=== PATIENT | male | born 1950 | race Caucasian/White ===

== ENCOUNTER → 2019-10-13 | Outpatient (CLI) | payer MEDICARE, OTHER ==
[2019-10-13 12:48] LABS: BUN/CREATININE RATIO 15; CREATININE SERUM 1.18 MG/DL (0.60-1.30); GFR ESTIMATED > 60
--- NOTE | 2019-10-13 13:55 | Diagnostic Imaging Report ---
PROCEDURE: CT abdomen and pelvis with contrast. TECHNIQUE: Multiple contiguous axial images were obtained through the abdomen and pelvis after administration of intravenous contrast. Auto Exposure Controls were utilized during the CT exam to meet ALARA standards for radiation dose reduction. INDICATION: Right-sided foot drop. COMPARISON: No prior studies are available for comparison. FINDINGS: The lung bases are clear. No discrete liver mass is identified. The gallbladder is unremarkable. No biliary ductal dilatation is detected. The pancreas and spleen are unremarkable. No adrenal mass is detected. Kidneys contain tiny cortical low densities, too small to characterize but most likely small cysts. The aorta is non-aneurysmal. No central, retroperitoneal, or mesenteric lymphadenopathy is detected. The small and large bowel loops are normal caliber. Appendix is unremarkable. There is diverticulosis of the descending and sigmoid colon but no evidence of acute diverticulitis. No free fluid or fluid collection is identified. No iliac or inguinal lymphadenopathy is detected. The bladder and prostate are unremarkable. The bony structures are nonacute. IMPRESSION: 1. Uncomplicated diverticulosis. 2. No acute feature in the abdomen or pelvis is identified. Dictated by: Dictated on workstation # [id number]
--- NOTE | 2019-10-13 14:10 | Diagnostic Imaging Report ---
INDICATION: Right-sided hip pain for one month. TIME OF EXAM: 12:40 p.m. FINDINGS: Curvature and alignment of the lumbar spine are normal. Vertebral body heights are maintained. No acute compression fracture is identified. There is generalized degenerative disc and facet disease with variable disc space narrowing and marginal spurring. There are some atherosclerotic calcifications within the abdominal aorta. No spondylolysis or spondylolisthesis is seen. IMPRESSION: Lumbar spondylosis. No acute bony abnormality is detected. Dictated by: Dictated on workstation # [id number]
== END ==
LOC: RAD 12:17
DX: M48.10 Ankylosing hyperostosis [Forestier], site unspecified (principal); M21.371 Foot drop, right foot; K57.30 Diverticulosis of large intestine without perforation or abscess without bleeding; M47.816 Spondylosis without myelopathy or radiculopathy, lumbar region
CPT/HCPCS: 36415; 72110; 74177; 82565; 84520

== ENCOUNTER → 2019-11-04 | Outpatient (CLI) | payer MEDICARE, OTHER ==
--- NOTE | 2019-11-04 14:10 | Diagnostic Imaging Report ---
PROCEDURE: MRI lumbar spine. TECHNIQUE: Multiplanar, multisequence MRI of the lumbar spine was performed without contrast. INDICATION: Back pain. Hip pain. Right foot drop. Radiculopathy. COMPARISON: Lumbar spine radiographs 10/13/2019. FINDINGS: There are five lumbar-type vertebral bodies for the purposes of this report. Normal alignment. Chronic superior endplate height loss of L4 is degenerative including a Schmorl's node. Mild degenerative endplate changes. No abnormal signal in the conus which terminates at L1. Normal morphology of the cauda equina. Visualized paravertebral soft tissues are unremarkable. L1-L2: No spinal canal or lateral recess narrowing. Mild bilateral neural foraminal narrowing. L2-L3: Annular disc bulge results in mild bilateral lateral recess narrowing. No spinal canal narrowing. Disc space height loss contributes to mild bilateral neural foraminal narrowing. L3-L4: Annular disc bulge combines with ligamentous hypertrophy to result in moderate right and severe left lateral recess narrowing. There is also mxti-cu-gdwzcjie spinal canal narrowing. Moderate right and severe left neural foraminal narrowing. L4-L5: Annular disc bulge, ligamentous hypertrophy, and facet arthropathy result in moderate bilateral lateral recess and mild spinal canal narrowing. Gmowrdhz-pb-gfgugu bilateral neural foraminal narrowing. L5-S1: No spinal canal narrowing. There is mild bilateral lateral recess and neural foraminal narrowing. IMPRESSION: 1. Spondylotic changes result in no high-grade spinal canal narrowing. Multilevel high-grade lateral recess and neural foraminal narrowing detailed above. 2. No acute osseous findings. Dictated by: Dictated on workstation # [id number]
== END ==
LOC: RAD 13:04
PROVIDERS: ATTEND Physical Medicine & Rehabilitation
DX: M47.26 Other spondylosis with radiculopathy, lumbar region (principal); M21.371 Foot drop, right foot
CPT/HCPCS: 72148

== ENCOUNTER 2020-10-11 05:32 | Outpatient (RCR) | payer MEDICARE, OTHER ==
[~2020-10-11] VITALS: Ht 177 cm; Wt 84.0 kg
[~2020-10-11 05:32] MED LIST: ACHD5005 PO; AMPH30TA2 PO; LOSA100T57 PO
== END 2020-10-11 10:54 | disposition home or self-care (01) ==
LOC: PREOP 05:32
PROVIDERS: ATTEND Surgery
DX: Z01.818 Encounter for other preprocedural examination (principal); K40.90 Unilateral inguinal hernia, without obstruction or gangrene, not specified as recurrent; Z20.828 Contact with and (suspected) exposure to other viral communicable diseases
CPT/HCPCS: 87635

== ENCOUNTER 2020-10-13 11:05 | Day surgery (SDC) | payer MEDICARE, OTHER ==
[2020-10-13] VITALS (12 sets, daily range): BP systolic 85–151; BP diastolic 55–95
[~2020-10-13] VITALS: Ht 177 cm; Wt 84.0 kg
[2020-10-13] MEDS ORDERED: LIDOCAINE/EPI 1%-1:200,000 (XYLOCAINE) 30 ML VIAL ONE (11:35)
--- NOTE | 2020-10-13 12:06 | Progress Note-Pre Operative ---
Pre-Operative Progress Note H&P Reviewed The H&P was reviewed, patient examined and no changes noted. Date Seen by Provider: Oct 13, 2020 Time Seen by Provider: 12:05 Date H&P Reviewed: Oct 13, 2020 Time H&P Reviewed: 12:00 Pre-Operative Diagnosis: Left inguinal hernia BERTHA WALTER APRN Oct 13, 2020 12:06
[2020-10-13] MEDS ORDERED: HYDR-4227 PO (12:07)
--- NOTE | 2020-10-13 12:08 | Discharge Inst-Surgical ---
D/C Lap Instructions-KIDO Reconcile Patient Problems Problems Reviewed?: Yes New, Converted, or Re-Newed RX: RX on Chart Follow Up Appt in 2 weeks Activity as tolerated No driving for 24 hours No driving while on pain medications Incentive Spirometry use every 2 hours while awake Regular Diet Symptoms to Report: Fever over 101 degree F, Nausea/Vomiting Infection Signs and Symptoms to report: Increased redness, Foul odor of wound, Increased drainage Bathing instructions: May shower Operative Area Clean/Dry; Keep incision clean/dry If any problems/questions: Contact your physician or go to Emergency Room BERTHA WALTER APRN Oct 13, 2020 12:07
[2020-10-13 12:13] LABS: BASOPHILS # (AUTO) 0.1 10^3/uL (0.0-0.1); BASOPHILS % (AUTO) 1 % (0-10); EOSINOPHILS # (AUTO) 0.3 10^3/uL (0.0-0.3); EOSINOPHILS % (AUTO) 5 % (0-10); HEMATOCRIT 44 % (40-54); HEMOGLOBIN 15.2 g/dL (13.3-17.7); LYMPHOCYTES # (AUTO) 1.4 10^3/uL (1.0-4.0); LYMPHOCYTES % (AUTO) 22 % (12-44); MEAN CORPUSCULAR HEMOGLOBIN 30 pg (25-34); MEAN CORPUSCULAR HGB CONC 35 g/dL (32-36); MEAN CORPUSCULAR VOLUME 87 fL (80-99); MEAN PLATELET VOLUME 8.8 fL (9.0-12.2); MONOCYTES # (AUTO) 0.5 10^3/uL (0.0-1.0); MONOCYTES % (AUTO) 8 % (0-12); NEUTROPHILS # (AUTO) 4.3 10^3/uL (1.8-7.8); NEUTROPHILS % (AUTO) 65 % (42-75); PLATELET COUNT 202 10^3/uL (130-400); WHITE BLOOD COUNT 6.7 10^3/uL (4.3-11.0)
[2020-10-13] MEDS ORDERED: ACETAMINOPHEN 325 MG TABLET PO PRN (12:15)
[2020-10-13] MEDS ORDERED: morphine INJ 10 MG/ML 1ML (SYR OR VIAL) IVP PRN (12:15)
[2020-10-13] MEDS ORDERED: ONDANSETRON 4 MG/2 ML (SDV) Z0FRAN IVP PRN ×2 (12:15→15:00)
[2020-10-13] MEDS ORDERED: HYDROcodone/APAP 5 MG/325 MG (LORTAB) TAB PO ONE (12:15)
[2020-10-13] MEDS ORDERED: ceFAZolin 2 GM IV Premixed 50 ML ONE (12:43)
[2020-10-13] MEDS ORDERED: ceFAZolin 2 GM IV Premixed 50 ML IV ONE (13:00)
[2020-10-13] MEDS ORDERED: LACTATED RINGERS 1,000 ML IV PRN ×2 (13:00)
[2020-10-13] MEDS ORDERED: fentaNYL INJECTION 100 MCG/2 ML AMP ONE (13:13)
[2020-10-13] MEDS ORDERED: MIDAZOLAM 2 MG/2 ML (VERSED) VIAL ONE (13:14)
[2020-10-13] MEDS ORDERED: ONDANSETRON 4 MG/2 ML (SDV) Z0FRAN ONE (13:22)
[2020-10-13] MEDS ORDERED: proPOfol 200 MG/20 ML (DIPRIVAN) VIAL IV ONE (13:22)
[2020-10-13] MEDS ORDERED: LIDOCAINE PF 2% 5 ML (XYLOCAINE) VIAL ONE (13:22)
[2020-10-13] MEDS ORDERED: SEVOFLURANE (ULTANE) 15 ML INHAL SOLN ONE ×2 (13:22→14:29)
[2020-10-13] MEDS ORDERED: morphine INJ 4 MG/ML 1 ML (VIAL/SYRINGE) IV PRN (14:00)
[2020-10-13] MEDS ORDERED: NS (IVPB) 0 ML ONE (14:24)
[2020-10-13] MEDS ORDERED: NEOSTIGMINE 3 MG/3 ML VIAL ONE (14:30)
[2020-10-13] MEDS ORDERED: ATROPINE INJ 0.4 MG/ML SDV ONE (14:30)
[2020-10-13] MEDS ORDERED: GLYCOPYRROLATE 0.2 MG/ML (ROBINUL) 2 ML VIAL ONE (14:30)
[2020-10-13] MEDS ORDERED: PHENYLEPHRINE 100 MCG/ML 10 ML (ANESTHESIA) SYR ONE (14:30)
[2020-10-13] MEDS ORDERED: ROCURONIUM 10 MG/ML 5 ML SYRINGE IV ONE (14:31)
[2020-10-13] MEDS ORDERED: ISOFLURANE (FORANE) 15 ML/15 MIN INHALATION ONE (14:34)
--- NOTE | 2020-10-13 14:42 | Progress Note-Post Operative ---
Post-Operative Progess Note Surgeon (s)/Lab Clerk (s) Surgeon JEWELL VERONICA MD Lab Clerk: yajaira calvo LOAN SERVICING OFFICER Pre-Operative Diagnosis Left inguinal hernia Post-Operative Diagnosis incarcerated sliding left indirect inguinal hernia Procedure & Operative Findings Date of Procedure 10/13/20 Procedure Performed/Findings laparoscopic incarcerated left inguinal hernia repair with mesh. Anesthesia Type get Estimated Blood Loss Estimated blood loss (mL): minimsl Specimens/Packing Specimens Removed none JEWELL VERONICA MD Oct 13, 2020 14:42
[2020-10-13] MEDS ORDERED: MEPERIDINE (DEMEROL) INJ 50 MG/ML IVP ONE (15:00)
[2020-10-13] MEDS ORDERED: morphine INJ 10 MG/ML 1ML (SYR OR VIAL) IVP ONE (15:00)
[2020-10-13] MEDS ORDERED: fentaNYL INJECTION 100 MCG/2 ML AMP IVP ONE (15:00)
--- NOTE | 2020-10-13 20:52 | OPERATIVE REPORT ---
DATE OF SERVICE: 10/13/2020 PREOPERATIVE DIAGNOSIS: Symptomatic left inguinal hernia. POSTOPERATIVE DIAGNOSIS: Left incarcerated sliding indirect inguinal hernia with small bowel in the hernia sac. Symptomatic left groin skin lesion, 1 cm in size. PROCEDURE: 1. Left incarcerated inguinal hernia repair with mesh. 2. Excision left groin skin lesion, 1 cm in size. SURGEON: Jewell Veronica MD. INSPECTOR DIALS: Andrae Chapman APRN ESTIMATED BLOOD LOSS: Minimal. FINDINGS: Left incarcerated sliding indirect inguinal hernia with small bowel in the hernia sac. Symptomatic left groin skin lesion, 1 cm in size. DISPOSITION: The patient tolerated the procedure well. The patient is a 70-year-old male referred over to us for a symptomatic painful bulge in the left inguinal region. He reports that this has been around for several years and has grown larger in size and become more painful. Upon examination, he was found to have a left inguinal hernia, which was tender to palpation and at that time was reducible. He is otherwise eating well and having normal bowel movements. He also does have a symptomatic skin lesion on the left inguinal region, which is consistent with a benign skin tag; however, this was larger, approximately 1 cm in size. DESCRIPTION OF PROCEDURE: The patient was brought to the operating room, laid supine on the table. After adequate IV pain and sedative medications and general endotracheal intubation, the abdomen was prepped and draped in standard surgical fashion. A 0.5% Marcaine with epinephrine was used to anesthetize overlying skin in the infraumbilical rim and a transverse skin incision made using a 15 blade. A sharp towel clamp was used to retract the abdominal wall anteriorly and a Veress needle inserted with low opening pressure of 0 mmHg and the abdomen was then insufflated to 15 mmHg pressure. The Veress needle removed and a 10 mm XL trocar placed followed by a 10 mm 45-degree angle laparoscope visualizing the peritoneal cavity. A 4-quadrant abdominal exploration was performed. There was a left indirect incarcerated sliding inguinal hernia identified with small bowel creating one wall of the hernia sac. There was no left inguinal hernia component. The remainder of the small bowel, omentum and colon appeared normal. Under direct visualization, we then proceeded to place bilateral 5 mm ports after the skin and peritoneal lining were anesthetized using 0.5% Marcaine with epinephrine and transverse skin incision was made using a 15 blade. The patient was then placed in reverse Trendelenburg position. A window was then created along the peritoneal lining starting laterally towards the conjoined tendon and inguinal ligament with the Sonicision. We then proceeded medially until Steven's ligament identified. We then proceeded with our inferior dissection encompassing the hernia sac. The cord and its surrounding contents identified and spared throughout the process. Good hemostasis was observed. A 3DMax polypropylene mesh was then placed into the peritoneal cavity and tacked to Steven's ligament medially and inguinal ligament laterally using absorbable tacks. The peritoneal lining was then placed over the mesh and a few absorbable tacks placed to hold this in place with visualization of good hemostasis. The 10 mm port site fascia and peritoneum were then closed under direct visualization using a Billy-Diane device and 0 Vicryl suture. The abdomen was desufflated and remaining ports removed. All skin incisions were closed using 4-0 Monocryl running subcuticular sutures. Wounds were then cleaned and covered with Dermabond. We then proceeded with excision of the symptomatic right groin skin lesion. The lesion was fully excised, encompassing normal skin using a 15 blade, an elliptical shape. Good hemostasis was observed and the skin edges were approximated using 4-0 Monocryl running subcuticular suture. The patient tolerated the procedure well. We will start IV normal pain medication as well as a clear liquid diet. Once he is tolerating clears, has good pain control with oral pain medications, ambulating well, we will discharge him home and he will be instructed to do no heavy lifting or exertion for the next two weeks. Job ID: [id number] DocumentID: [id number] Dictated Date: 10/13/2020 14:50:03 Employee Benefits Director Date: 10/13/2020 20:52:07 Dictated By: JEWELL VERONICA MD
== END 2020-10-13 16:45 ==
LOC: SDC 11:05
PROVIDERS: ATTEND Surgery
DX: K40.30 Unilateral inguinal hernia, with obstruction, without gangrene, not specified as recurrent (principal); K40.90 Unilateral inguinal hernia, without obstruction or gangrene, not specified as recurrent; C44.519 Basal cell carcinoma of skin of other part of trunk; I10 Essential (primary) hypertension; G25.81 Restless legs syndrome; Z79.899 Other long term (current) drug therapy; Z80.6 Family history of leukemia
CPT/HCPCS: 11601; 49507; 85025; 87081; 88305; C1781; 36415

== ENCOUNTER → 2021-06-21 | Outpatient (CLI) | payer MEDICARE, OTHER ==
[~2021-06-21] MED LIST changes: +HYDR-4227 PO
== END ==
LOC: CARD 08:30
PROVIDERS: ATTEND Internal Medicine Cardiovascular Disease
DX: G45.9 Transient cerebral ischemic attack, unspecified (principal)
CPT/HCPCS: 93225; 93226

== ENCOUNTER → 2021-06-22 | Outpatient (CLI) | payer MEDICARE, OTHER ==
--- NOTE | 2021-06-22 11:45 | Diagnostic Imaging Report ---
PROCEDURE: MR imaging of the brain without contrast. TECHNIQUE: Multiplanar, multisequence MR imaging of the brain was performed without contrast. INDICATION: Strokelike symptoms with right-sided weakness. No prior studies are available for comparison. The ventricles and sulci are prominent consistent with cerebral atrophy. There is extensive periventricular and subcortical white matter changes noted consistent with chronic micro-vascular ischemia. No diffusion restriction is identified. The normal expected flow-voids within the carotid siphons are seen. No acute intra-axial or extra-axial hemorrhage is detected. Corpus callosum is unremarkable. Sella and parasellar structures are unremarkable. IMPRESSION: Extensive changes of chronic microvascular ischemia. No acute intracranial process is detected. Dictated by: Dictated on workstation # [id number]
== END ==
LOC: CARD 09:00
PROVIDERS: ATTEND Internal Medicine Cardiovascular Disease
DX: G45.9 Transient cerebral ischemic attack, unspecified (principal)
CPT/HCPCS: 70551; 93306

== ENCOUNTER → 2021-11-21 | Outpatient (CLI) | payer MEDICARE, OTHER ==
[~2021-11-21] MED LIST changes: +CATHETER FLUSH 10 ML SYR IV PRN
[2021-11-21 13:29] VITALS: BP 142/93
[2021-11-21 13:43] VITALS: BP 187/88
--- NOTE | 2021-11-21 18:27 | STRESS TEST ---
DATE OF SERVICE: 11/21/2021 RESTING AND POST EXERCISE TECHNETIUM-99M TETROFOSMIN SPECT CT IMAGING ORDERING PHYSICIAN: Dr. Vega. CLINICAL DIAGNOSIS: Premature ventricular contractions. Baseline images were carried out after injection of 9.97 mCi of technetium-99m Tetrofosmin. This was followed by exercise on a treadmill. Mannie protocol was employed. Heart rate response to exercise was normal. Blood pressure response to exercise was hypertensive. Test was stopped on account of fatigue. At peak exercise and in the immediate recovery phase, there appears to be approximately [address] segment depression. He did not report chest discomfort. He exercised for a total of 8 minutes and 55 seconds and attained 10.3 METS of workload and 93% of maximum predicted heart rate. After he had attained more than 85% of maximum predicted heart rate, 28.1 mCi of technetium-99m Tetrofosmin were injected and the exercise was continued for approximately another minute. Review of images at rest and following stress indicates a transient lateral wall perfusion defect, which appears moderate in intensity. Gated images show normal global left ventricular systolic function with normal regional wall motion. Left ventricular ejection fraction is calculated to be 76%. Left ventricular end-diastolic volume is 49 mL. TID is absent (0.76). CONCLUSIONS: 1. This study is suggestive of a moderate amount of lateral wall ischemia. 2. Normal global left ventricular systolic function with a calculated ejection fraction of 76%. 3. No significant regional wall motion abnormality identified on this study. Job ID: [id number] DocumentID: [id number] Dictated Date: 11/21/2021 15:57:07 Suspender Maker Date: 11/21/2021 18:26:33 Dictated By: JUAN VEGA MD, MA, FACP, FACC,
== END ==
LOC: CARD 12:00
PROVIDERS: ATTEND Internal Medicine Cardiovascular Disease
DX: I49.3 Ventricular premature depolarization (principal)
CPT/HCPCS: 78452; 93017; A9502

== ENCOUNTER 2022-05-23 07:05 | Outpatient (CLI) | payer MEDICARE ==
[~2022-05-23] VITALS: Ht 177.8 cm; Wt 83.5 kg
[~2022-05-23 07:05] MED LIST changes: -CATHETER FLUSH 10 ML SYR IV PRN
== END 2022-05-25 09:28 ==
LOC: PREOP 07:05
PROVIDERS: ATTEND Internal Medicine
DX: Z01.818 Encounter for other preprocedural examination (principal)

== ENCOUNTER 2022-06-01 08:53 | Day surgery (SDC) | payer MEDICARE ==
--- NOTE | 2022-05-23 08:41 | HISTORY AND PHYSICAL ---
DATE OF SERVICE: COLONOSCOPY HISTORY AND PHYSICAL DATE OF ADMISSION: . HISTORY OF PRESENT ILLNESS: The patient is a 71-year-old white male, who reports about a 6-week history of intermittent bright red blood per rectum. He had some abdominal distention without any significant abdominal pain. He thought that it may be salmonella related as he had eaten a fair amount of peanut butter, but a lot number appeared to be recalled; however, the patient never had any significant diarrhea. He has no history of hemorrhoids. Denies any pain with defecation. He is not aware of any weight loss and reports no previous history of colonoscopy. He is not aware of any family history for colon cancer. PAST MEDICAL HISTORY: Significant for type 2 diabetes, hyperlipidemia, and hypertension with no known history of cardiovascular disease. PHYSICAL EXAMINATION: GENERAL: Reveals a white male, appeared to be in no acute distress. HEENT: Unremarkable. Sclerae nonicteric. No evidence for pallor. VITAL SIGNS: Blood pressure 130/72. CHEST: Clear. CARDIOVASCULAR: Reveals a regular rate and rhythm without murmur, S3 or S4. ABDOMEN: Soft, supple without mass, organomegaly or tenderness. There is a little bit of fullness in the left lower quadrant, but nontender. No discrete mass type feel on evaluation. EXTREMITIES: Reveal no cyanosis, clubbing or edema. ASSESSMENT AND PLAN: The patient is being set up for his first screening colonoscopy. We will perform a digital rectal evaluation at the time of the test. Electronic medical record was reviewed. The patient was advised to abstain from aspirin. Prep instructions were given and questions were answered. Job ID: [id number] DocumentID: [id number] Dictated Date: 05/16/2022 17:19:37 Automotive Metalsmith Date: 05/16/2022 17:32:21 Dictated By: DEONDRE STAFFORD MD
[2022-06-01] VITALS (8 sets, daily range): BP systolic 111–163; BP diastolic 59–89
[~2022-06-01] VITALS: Ht 177.8 cm; Wt 83.5 kg
[2022-06-01] MEDS ORDERED: LACTATED RINGERS 1,000 ML IV STA (08:55)
[2022-06-01] MEDS ORDERED: LACTATED RINGERS 1,000 ML IV ONE (08:59)
--- NOTE | 2022-06-01 09:01 | Pre-Op Note & Conscious Sedat ---
Pre-Operative Progress Note Date H&P Reviewed: Jun 01, 2022 Time H&P Reviewed: 09:00 History & Physical: H&P Reviewed, Patient Examed, No changes noted Pre-Op Diagnosis: Screening Colon Conscious Sedation Pre-Proced ASA Score 2 For ASA 3 and 4: Consider anesthesia and medical clearance. Also, for patients with a history of failed moderate sedation consider anesthesia. Airway Lungs Heart ASA score ASA 1: a normal healthy patient ASA 2: a patient with a mild systemic disease (mid diabetes, controlled hypertension, obesity ASA 3: a patient with a severe systemic disease that limits activity (angina, COPD, prior Myocardial infarction) ASA 4: a patient with an incapacitating disease that is a constant threat to life (CHF, renal failure) ASA 5: a moribund patient not expected to survive 24 hrs. (ruptured aneurysm) ASA 6: a declared brain- patient whose organs are being harvested. For emergent operations, add the letter E after the classification Mallampati Classification Grade 2 Sedation Plan Analgesia, Amnesia, Plan communicated to team members, Discussed options with patient/fam, Discussed risks with patient/fam The patient is an appropriate candidate to undergo the planned procedure, sedation, and anesthesia. The patient immediately re-assessed prior to indication. DEONDRE STAFFORD MD Jun 01, 2022 09:01
[2022-06-01] MEDS ORDERED: PROPOFOL INJECTION 50 ML IV ONE ×2 (09:11→09:30)
[2022-06-01] MEDS ORDERED: MIDAZOLAM 2 MG/2 ML (VERSED) VIAL ONE (09:11)
[2022-06-01] MEDS ORDERED: ASPI-999 PO (09:14)
[2022-06-01] MEDS ORDERED: METO50TA7 PO (09:14)
[2022-06-01] MEDS ORDERED: METF-397 PO (09:14)
[2022-06-01] MEDS ORDERED: ATOR80TA76 PO (09:14)
[2022-06-01] MEDS ORDERED: HYDR-3820 PO (09:14)
[2022-06-01] MEDS ORDERED: CYAN100T37 PO (09:14)
--- NOTE | 2022-06-01 11:49 | Anesthesia-General Post-Op ---
MAC Patient Condition Mental Status/LOC: Same as Preop Cardiovascular: Satisfactory Nausea/Vomiting: Absent Respiratory: Satisfactory Pain: Controlled Complications: Absent Post Op Complications Complications None Follow Up Care/Instructions Patient Instructions None needed. Anesthesiology Discharge Order Discharge Order Patient is doing well, no complaints, stable vital signs, no apparent adverse anesthesia problems. No complications reported per nursing. CARLA LIGHT CRNA Jun 01, 2022 11:49
--- NOTE | 2022-06-01 15:08 | OPERATIVE REPORT ---
DATE OF SERVICE: COLONOSCOPY SUMMARY INDICATION FOR THE PROCEDURE: The patient is a 71-year-old white male undergoing his first screening colonoscopy. DESCRIPTION OF PROCEDURE: The patient was placed in the left lateral decubitus position. Prior to undergoing colonoscopy, digital rectal evaluation was performed. Anal sphincter tone was normal and the perianal reflexes intact. Prostate is mildly enlarged and anodular on digital inspection. No other abnormalities were noted on digital inspection of anal canal or distal rectal vault. The colonoscope was then inserted into the rectum and under direct visualization advanced to the cecum. The cecum was identified by identification of the ileocecal valve and cecal strap. Photographic documentation was obtained. Careful inspection was made as colonoscope withdrawn. Quality of prep was good. FINDINGS: The patient did have significant telangiectasia in the anal canal with one grade I internal hemorrhoid complex. The rectum was unremarkable. Moderate diverticular disease confined to the sigmoid colon was present without evidence for diverticulitis. The descending colon was unremarkable. A 4 mm sessile adenomatous appearing polyp was noted in the splenic flexure. Hot forceps was used to biopsy and cauterize the polyp with no subsequent blood loss. The transverse colon was unremarkable. A sessile 5 to 6 mm polyp was noted at the hepatic flexure. It was photographed and biopsied and ablated with hot forceps as well with no subsequent blood loss. The ascending colon and cecum were unremarkable. ASSESSMENT: Two adenomatous appearing polyps were removed, one from the splenic flexure, the other one from the hepatic flexure via hot forceps as long as there are no surprises on histopathology report, we will likely advocate consideration for repeat colonoscopy in 5 years. Moderate diverticular disease confined to the sigmoid colon was present without evidence for diverticulitis. The patient also had significant telangiectasia in the anal canal, likely source of the small volume bright red blood per rectum with one grade I internal hemorrhoid complex. Job ID: [id number] DocumentID: [id number] Dictated Date: 06/01/2022 09:49:56 Hot Baller Date: 06/01/2022 15:07:10 Dictated By: DEONDRE STAFFORD MD
== END 2022-06-01 11:10 | disposition home or self-care (01) ==
LOC: ENDO 08:53
PROVIDERS: ATTEND Internal Medicine
DX: Z12.11 Encounter for screening for malignant neoplasm of colon (principal); D12.3 Benign neoplasm of transverse colon
CPT/HCPCS: 88305

== ENCOUNTER → 2023-09-11 | Outpatient (CLI) | payer MEDICARE ==
[~2023-09-11] MED LIST changes: +ASPI-999 PO; +ATOR80TA76 PO; +CYAN100T37 PO; +HYDR-3820 PO; -LOSA100T57 PO; +LOSA100T58 PO; +METF-397 PO; +METO50TA7 PO
[2023-09-11 15:37] LABS: BASOPHILS # (AUTO) 0.1 10^3/uL (0.0-0.1); BASOPHILS % (AUTO) 1 % (0-10); EOSINOPHILS # (AUTO) 0.1 10^3/uL (0.0-0.3); EOSINOPHILS % (AUTO) 1 % (0-10); HEMATOCRIT 36 % (40-54); HEMOGLOBIN 11.7 g/dL (13.3-17.7); LYMPHOCYTES # (AUTO) 1.1 10^3/uL (1.0-4.0); LYMPHOCYTES % (AUTO) 15 % (12-44); MEAN CORPUSCULAR HEMOGLOBIN 28 pg (25-34); MEAN CORPUSCULAR HGB CONC 33 g/dL (32-36); MEAN CORPUSCULAR VOLUME 86 fL (80-99); MEAN PLATELET VOLUME 8.4 fL (9.0-12.2); MONOCYTES # (AUTO) 0.6 10^3/uL (0.0-1.0); MONOCYTES % (AUTO) 9 % (0-12); NEUTROPHILS # (AUTO) 5.5 10^3/uL (1.8-7.8); NEUTROPHILS % (AUTO) 74 % (42-75); PLATELET COUNT 423 10^3/uL (130-400); WHITE BLOOD COUNT 7.4 10^3/uL (4.3-11.0)
[2023-09-11 15:45] LABS: ALBUMIN 3.4 GM/DL (3.2-4.5); POTASSIUM 3.7 MMOL/L (3.6-5.0)
[2023-09-11 15:46] LABS: CALCIUM 9.4 MG/DL (8.5-10.1)
[2023-09-11 15:49] LABS: BILIRUBIN,TOTAL 0.3 MG/DL (0.1-1.0)
[2023-09-11 15:51] LABS: CREATININE SERUM 0.88 MG/DL (0.60-1.30)
[2023-09-11 16:07] LABS: ERYTHROCYTE SEDIMENTATION RATE 113 MM/HR (0-30)
== END ==
LOC: WOUNDCARE 13:52
PROVIDERS: ATTEND Family Medicine
DX: T81.31XA Disruption of external operation (surgical) wound, not elsewhere classified, initial encounter (principal); I96 Gangrene, not elsewhere classified; S97.02XA Crushing injury of left ankle, initial encounter; I70.243 Atherosclerosis of native arteries of left leg with ulceration of ankle; L92.8 Other granulomatous disorders of the skin and subcutaneous tissue; R60.0 Localized edema; V28.49XA Other motorcycle driver injured in noncollision transport accident in traffic accident, initial encounter
CPT/HCPCS: 11042; 80053; 83036; 85025; 85652; 86141; 87070; 87077; 87186; 87205; A6260; G0463; 36415

== ENCOUNTER → 2023-09-17 | Outpatient (CLI) | payer MEDICARE | LOC: WOUNDCARE 14:05 | PROVIDERS: ATTEND Family Medicine | DX: T81.31XA Disruption of external operation (surgical) wound, not elsewhere classified, initial encounter (principal); S97.02XA Crushing injury of left ankle, initial encounter; L92.8 Other granulomatous disorders of the skin and subcutaneous tissue; I70.243 Atherosclerosis of native arteries of left leg with ulceration of ankle; R60.0 Localized edema; V28.49XA Other motorcycle driver injured in noncollision transport accident in traffic accident, initial encounter; A49.02 Methicillin resistant Staphylococcus aureus infection, unspecified site; I96 Gangrene, not elsewhere classified | CPT/HCPCS: 99212 ==

== ENCOUNTER → 2023-09-17 | Outpatient (CLI) | payer MEDICARE ==
[~2023-09-17] MED LIST changes: +GADOTERATE 0.5 MMOL/ML (CLARISCAN) 15 ML VIAL IV ONE
--- NOTE | 2023-09-17 16:25 | Diagnostic Imaging Report ---
EXAMINATION: Magnetic resonance imaging of the left ankle without and with intravenous contrast. DATE: September 17, 2023. COMPARISON: None. HISTORY: 73-year-old male, left ankle pain. History of injury and surgery in June 2023. Nonhealing wound. TECHNIQUE: Magnetic Resonance Imaging sequences were performed of the ankle without and with intravenous contrast. FINDINGS: There is focal fluid signal superficial to the posterior flexor tendons near the level of the calcaneus in the medial subcutaneous tissues measuring 4.6 x 1.2 cm in axial extent and 5.0 cm in craniocaudal extent. There is peripheral enhancement. There is also adjacent subcutaneous edema. There is no additional identified focal fluid collection. There is intramuscular edema involving the entire imaged musculature. There is no particularly prominent fatty muscle atrophy. The Achilles tendon is intact. The posterior flexor tendons are intact. The anterior extensor tendons are intact. The peroneus brevis and peroneus longus tendons are intact. There is no evidence of tenosynovitis. At least portions of the deep deltoid ligament are intact on coronal STIR sequence image 19. There is nondiagnostic assessment of the lateral ankle ligaments and syndesmotic ligaments given artifact associated with hardware at the level of the distal fibula. There is also a syndesmotic component to the hardware. The plantar fascia is intact in its imaged extent. There is low-level loss of normal T1 marrow signal with marrow edema and enhancement in the distal tibia including at the level of the articulating surface extending proximally to the level of the distal tibial metadiaphysis. There is more prominent loss of normal T1 marrow signal in the calcaneus with abnormal marrow edema and enhancement throughout the calcaneus. Similar signal changes are noted in the calcaneus underlying the posterior calcaneal facet and posterior superior calcaneus as well as near the critical angle of Gissane. There is edema-like signal in the medial aspect of the navicular. There are signal changes in portions of the talus, concerning for avascular necrosis. There is a trace tibiotalar joint effusion and posterior subtalar joint effusion. There is lack of normal fat signal within the sinus tarsi. IMPRESSION: 1. Peripherally enhancing fluid collection in the medial subcutaneous tissues superficial to the posterior flexor tendons at the level of the calcaneus, likely reflecting abscess, with measurements as above. 2. Abnormal marrow signal involving the distal tibia from the level of the articulating surface to the distal tibial metadiaphysis as well as involving the calcaneus as mentioned above and talus, very likely reflecting multifocal osteomyelitis. There is also edema-like signal in portions of the medial navicular which may reflect early osteomyelitis. 3. Trace tibiotalar and posterior subtalar joint effusions, concerning for septic arthritis. 4. Negative for tendon tear. No evidence of tenosynovitis. 5. Diffuse intramuscular edema which could relate to nonspecific myositis and/or denervation related signal changes. Dictated by: Dictated on workstation # [id number]
== END ==
LOC: RAD 12:20
PROVIDERS: ATTEND Family Medicine
DX: T81.31XA Disruption of external operation (surgical) wound, not elsewhere classified, initial encounter (principal); S97.02XA Crushing injury of left ankle, initial encounter; I70.243 Atherosclerosis of native arteries of left leg with ulceration of ankle; R60.0 Localized edema; V28.49XA Other motorcycle driver injured in noncollision transport accident in traffic accident, initial encounter
CPT/HCPCS: 73725